=== PATIENT | female | born 1940 | race Caucasian/White ===

== ENCOUNTER → 2020-06-07 | Day surgery (SDC) | payer MEDICARE, OTHER ==
[~2020-06-07] MED LIST: ASPIRIN CHEWABL81 MG PO; CILOSTAZOL100 MG PO; PANTOPRAZOLE SO40 MG PO; PERCOCET 5-3251 EACH PO; PLAVIX75 MG PO; ZOCOR10 MG PO
== END | disposition home or self-care (01) ==
LOC: FAS 06:00
DX: M16.0 Bilateral primary osteoarthritis of hip (principal); I10 Essential (primary) hypertension; E78.00 Pure hypercholesterolemia, unspecified; Z79.02 Long term (current) use of antithrombotics/antiplatelets; Z88.6 Allergy status to analgesic agent; Z88.8 Allergy status to other drugs, medicaments and biological substances
CPT/HCPCS: 76000; J1040; J1885; J2001; J2704; J7120; Q9967